=== PATIENT | male | born 1980 | race Caucasian/White ===

== ENCOUNTER 2018-11-30 20:44 | Emergency (ER) | payer SELFPAY ==
--- NOTE | 2018-11-30 22:40 | Emergency Department Report ---
Blank Doc - Documentation Documentation: This is a 38-year-old male here report that he passed out today when he was in the [facility]. He said he is homeless and fell short of breath. He denies any chest pain or shortness of breath at present. Denies any headache or nausea or vomiting. He said he felt like he could not breathe and then he passed out. He said this is happened to him a long time ago. Denies any head injury or headache. Denies any vomiting or dizziness at present. He has a history of high blood pressure. Denies any neck pain or back pain. Pain is 0/10. Patient denies any alcohol use Assessment/plan Vital signs are stable except his blood pressure is 142/103 and he is afebrile. Pulse ox is 100. Many Neurological-alert and oriented 3 and GCS of 15. Neck: No C-spine tenderness Head: Normal exam This initial assessment diagnostic orders/clinical plan/treatment(s) is/are subject to change based on patient's health status, clinical progression and re- assessment by fellow clinical providers in the ED. Further treatment and workup at subsequent clinical providers discretion. Patient/guardians urged not to elope from ED s their condition may be serious if not clinically assessed and managed. Initial orders include: 1-CT scan of the head and brain without contrast, CBC, CMP, troponin, chest x- ray and EKG.
[2018-11-30 23:17] LABS: Basophils % (Auto) 0.8 % (0.0-1.8); Eosinophils # (Auto) 0.2 K/mm3 (0.0-0.4); Eosinophils % (Auto) 2.9 % (0.0-4.3); Hematocrit 43.5 % (35.5-45.6); Hemoglobin 15.4 gm/dl (11.8-15.2); Lymphocytes # (Auto) 1.9 K/mm3 (1.2-5.4); Lymphocytes % (Auto) 31.2 % (13.4-35.0); Mean Corpuscular HGB Conc 36 % (32-34); Mean Corpuscular Volume 94 fl (84-94); Monocytes # (Auto) 0.5 K/mm3 (0.0-0.8); Monocytes % (Auto) 9.1 % (0.0-7.3); Platelet Count 128 K/mm3 (140-440); Red Blood Count 4.62 M/mm3 (3.65-5.03); Red Cell Distribution Width 13.3 % (13.2-15.2)
[2018-11-30 23:39] LABS: Alanine Aminotransferase 85 units/L (7-56); Albumin 4.1 g/dL (3.9-5); BUN/Creatinine Ratio 15; Blood Urea Nitrogen 9 mg/dL (9-20); Calcium 9.2 mg/dL (8.4-10.2); Hemolysis Index 4
[2018-12-01] MEDS ORDERED: NACL 0.9% 1000 ML 1,000 ML IV ONE (01:09)
[2018-12-01] MEDS ORDERED: ZOFRAN IV ONE (01:09)
--- NOTE | 2018-12-01 02:01 | Emergency Department Report ---
ED General Adult HPI - General Chief complaint: Syncope Stated complaint: CHEST PAIN Time Seen by Provider: 11/30/18 22:08 Source: patient Mode of arrival: Ambulatory Limitations: No Limitations - History of Present Illness Initial comments: This is a 38-year-old male here report that he passed out today when he was in the [place]. He said he is homeless and fell short of breath. He denies any chest pain or shortness of breath at present. Denies any headache or nausea or vomiting. He said he felt like he could not breathe and then he passed out. He said this is happened to him a long time ago. Denies any head injury or headache. Denies any vomiting or dizziness at present. He has a history of high blood pressure. Denies any neck pain or back pain. Pain is 0/10. Patient denies any alcohol use MD Complaint: near syncope Onset/Timin -: hour(s) Radiation: non-radiation Severity scale (0 -10): 0 Associated Symptoms: weakness Treatments Prior to Arrival: none - Related Data Previous Rx's Medication Instructions Recorded Last Taken Type ALBUTEROL Inhaler(NF) [VENTOLIN 2 puff IH Q4H PRN #1 inha 12/01/18 Unknown Rx Inhaler(NF)] Azithromycin [Zithromax Z-ARUNA] 250 mg PO DAILY #6 tab 12/01/18 Unknown Rx Benzonatate [Tessalon Perles] 200 mg PO Q8HR PRN #30 capsule 12/01/18 Unknown Rx Ibuprofen 800 mg PO TID PRN #30 tablet 12/01/18 Unknown Rx Allergies Allergy/AdvReac Type Severity Reaction Status Date / Time No Known Allergies Allergy Verified 11/30/18 20:54 ED Review of Systems ROS: Stated complaint: CHEST PAIN Other details as noted in HPI Constitutional: weakness, other (dizziness ). denies: chills, fever Eyes: denies: eye pain, eye discharge, vision change ENT: as per HPI Respiratory: denies: cough, shortness of breath, wheezing Cardiovascular: denies: chest pain, palpitations Endocrine: no symptoms reported Gastrointestinal: denies: abdominal pain, nausea, diarrhea Genitourinary: denies: urgency, dysuria Musculoskeletal: denies: back pain, joint swelling, arthralgia Skin: denies: rash, lesions Neurological: weakness Psychiatric: anxiety Hematological/Lymphatic: denies: easy bleeding, easy bruising ED Past Medical Hx - Past Medical History Previous Medical History?: Yes Hx Hypertension: Yes - Surgical History Past Surgical History?: No - Social History Smoking Status: Never Smoker Substance Use Type: Alcohol - Medications Home Medications: Home Medications Medication Instructions Recorded Confirmed Last Taken Type ALBUTEROL Inhaler(NF) [VENTOLIN 2 puff IH Q4H PRN #1 inha 12/01/18 Unknown Rx Inhaler(NF)] Azithromycin [Zithromax Z-ARUNA] 250 mg PO DAILY #6 tab 12/01/18 Unknown Rx Benzonatate [Tessalon Perles] 200 mg PO Q8HR PRN #30 capsule 12/01/18 Unknown Rx Ibuprofen 800 mg PO TID PRN #30 tablet 12/01/18 Unknown Rx ED Physical Exam - General Limitations: No Limitations General appearance: alert, in no apparent distress - Head Head exam: Present: normocephalic, normal inspection - Expanded Head Exam Expanded Head exam: Absent: laceration, abrasion, contusion, hematoma, racoon eyes, edmonds's sign, general tenderness, tenderness of temporal artery, CSF rhinorrhea, CSF otorrhea - Eye Eye exam: Present: normal appearance, PERRL, EOMI Pupils: Present: normal accommodation - ENT ENT exam: Present: normal orophraynx, mucous membranes moist, TM's normal bilaterally, normal external ear exam - Neck Neck exam: Present: normal inspection, full ROM. Absent: tenderness, meningismus, lymphadenopathy, thyromegaly - Expanded Neck Exam Expanded Neck exam: Absent: tenderness, midline deformity, anterior neck swelling, thyroid mass, carotid bruit, tracheal deviation - Respiratory Respiratory exam: Present: normal lung sounds bilaterally. Absent: respiratory distress, wheezes, stridor, chest wall tenderness - Cardiovascular Cardiovascular Exam: Present: regular rate, normal rhythm, normal heart sounds (antibiotics 10 minute is began year and a his heart is regular location.,.Is is reviewed and is as she). Absent: systolic murmur, diastolic murmur, rubs, gallop - GI/Abdominal GI/Abdominal exam: Present: soft, tenderness (RUQ ), normal bowel sounds. Absent: distended, guarding, rebound, rigid, bruit, hernia - Expanded GI/Abdominal Exam Expanded GI/Abdominal exam: Present: Birch's sign. Absent: psoas sign, obturator sign, heel tap sign, Rovsing's sign, tenderness at Mcburney's Point, ascites - Rectal Rectal exam: Present: deferred - Extremities Exam Extremities exam: Present: normal inspection, full ROM, normal capillary refill. Absent: tenderness, joint swelling, calf tenderness - Back Exam Back exam: Present: normal inspection, full ROM. Absent: tenderness, CVA tenderness (R), CVA tenderness (L), muscle spasm, paraspinal tenderness, vertebral tenderness, rash noted - Neurological Exam Neurological exam: Present: alert, oriented X3, CN II-XII intact, normal gait, reflexes normal - Psychiatric Psychiatric exam: Present: normal affect, normal mood. Absent: homicidal ideation, suicidal ideation - Skin Skin exam: Present: warm, dry, intact, normal color. Absent: rash ED Course Vital Signs 11/30/18 20:54 Temperature 98.7 F Pulse Rate 82 Respiratory 16 Rate Blood Pressure 142/103 [Left] O2 Sat by Pulse 100 Oximetry ED Medical Decision Making - Lab Data Result diagrams: 11/30/18 22:56 11/30/18 22:56 - EKG Data EKG shows normal: sinus rhythm Rate: normal - EKG Data Interpretation: normal EKG (ekg interp by ed attending nsr no ST elevation no no ectopy ) - Radiology Data Radiology results: report reviewed, image reviewed interpreted by me: FINAL REPORT PROCEDURE: CT ABD AND PELVIS WO CONTRAST TECHNIQUE: Computerized axial tomography of the abdomen and pelvis was performed without intravenous contrast. This study is performed without intravascular contrast material and its sensitivity for abdominal and pelvic pathology, including neoplasms, inflammation, abscess, free fluid, thrombosis, arterial dissection and infarction, is reduced compared with a contrast enhanced study. HISTORY: abd pain COMPARISON: No prior studies are available for comparison. FINDINGS: Visualized lower thorax: No significant abnormality. Liver: Normal size and attenuation. Spleen: Normal size and attenuation. Gallbladder and biliary system: Normal. Pancreas: Normal. Adrenals: Normal. Kidneys: Normal. GI tract: No obstruction. The cecum, appendix and colon are normal.. Lymph nodes and mesentery: Normal. Vasculature: Normal. Bladder: Normal. Reproductive organs: Normal. Peritoneum: No free fluid. Musculoskeletal structures: No significant abnormality. Other: None. IMPRESSION: There is no evidence of an acute process in the abdomen or pelvis. The appendix is normal.. Transcribed By: [facility] Dictated By: SHANI VASQUEZ MD Electronically Authenticated By: SHANI VASQUEZ MD Signed Date/Time: 12/01/18258 DD/ 7 TD/TT: 12/01/18257 CT Head normal no acute abnormalities CXR: Mild left lung infiltrate FINAL REPORT PROCEDURE: CT ABD AND PELVIS WO CONTRAST TECHNIQUE: Computerized axial tomography of the abdomen and pelvis was performed without intravenous contrast. This study is performed without intravascular contrast material and its sensitivity for abdominal and pelvic pathology, including neoplasms, inflammation, abscess, free fluid, thrombosis, arterial dissection and infarction, is reduced compared with a contrast enhanced study. HISTORY: abd pain COMPARISON: No prior studies are available for comparison. FINDINGS: Visualized lower thorax: No significant abnormality. Liver: Normal size and attenuation. Spleen: Normal size and attenuation. Gallbladder and biliary system: Normal. Pancreas: Normal. Adrenals: Normal. Kidneys: Normal. GI tract: No obstruction. The cecum, appendix and colon are normal.. Lymph nodes and mesentery: Normal. Vasculature: Normal. Bladder: Normal. Reproductive organs: Normal. Peritoneum: No free fluid. Musculoskeletal structures: No significant abnormality. Other: None. IMPRESSION: There is no evidence of an acute process in the abdomen or pelvis. The appendix is normal.. Transcribed By: [facility] Dictated By: SHANI VASQUEZ MD Electronically Authenticated By: SHANI VASQUEZ MD Signed Date/Time: 12/01/18258 DD/ 7 TD/TT: 12/01/18257 CT Head normal no acute abnormalities CXR: Mild left lung infiltrate - Medical Decision Making CT head no acute abnormalities no bleed no masses CT abdomen no acute findings chest x-ray mild infiltrate left lung patient Rocephin 1 g DC'd to home with Zithromax CMP, CBC demonstrated mild hydration patient given normal saline 1 L IV patient tolerating by mouth hydration and follow-up exam there are no neuro deficits patient is alert & oriented patient is ambulatory with steady gait is no wheezing or shortness of breath no chest pain no back pain no diaphoresis no chest pain EKG is normal sinus rhythm no ectopy no ST elevation interpreted by ED attending this time DC home in stable condition with prescription for his azithromycin albuterol inhaler and ibuprofen patient will continue to hydrate as directed . [facility] and follow up in 2-3 days patient will return to ED should symptoms worsen patient verbalizes agreement and understanding the discharge plan patient DC'd to home in stable condition at this time Critical care attestation.: If time is entered above; I have spent that time in minutes in the direct care of this critically ill patient, excluding procedure time. ED Disposition Clinical Impression: Bronchitis, Mild dehydration CAP (community acquired pneumonia) Qualifiers: Laterality: left Lung location: lower lobe of lung Qualified Code(s): J18.1 - Lobar pneumonia, unspecified organism Disposition: DC-01 TO HOME OR SELFCARE Is pt being admited?: No Does the pt Need Aspirin: No Condition: Stable Instructions: Community-acquired Pneumonia (ED), Upper Respiratory Infection (ED) Prescriptions: ALBUTEROL Inhaler(NF) [VENTOLIN Inhaler(NF)] 2 puff IH Q4H PRN #1 inha PRN Reason: Shortness Of Breath wheezing Azithromycin [Zithromax Z-ARUNA] 250 mg PO DAILY #6 tab Benzonatate [Tessalon Perles] 200 mg PO Q8HR PRN #30 capsule PRN Reason: Cough Ibuprofen 800 mg PO TID PRN #30 tablet PRN Reason: pain fever Referrals: PRIMARY CARE, [Primary Care Provider] - 3-5 Days Forms: Work/School Release Form(ED)
--- NOTE | 2018-12-01 02:59 | Cat Scan Report ---
FINAL REPORT PROCEDURE: CT ABD AND PELVIS WO CONTRAST TECHNIQUE: Computerized axial tomography of the abdomen and pelvis was performed without intravenous contrast. This study is performed without intravascular contrast material and its sensitivity for ab dominal and pelvic pathology, including neoplasms, inflammation, abscess, free fluid, thrombosis, art erial dissection and infarction, is reduced compared with a contrast enhanced study. HISTORY: abd pain COMPARISON: No prior studies are available for comparison. FINDINGS: Visualized lower thorax: No significant abnormality. Liver: Normal size and attenuation. Spleen: Normal size and attenuation. Gallbladder and biliary system: Normal. Pancreas: Normal. Adrenals: Normal. Kidneys: Normal. GI tract: No obstruction. The cecum, appendix and colon are normal.. Lymph nodes and mesentery: Normal. Vasculature: Normal. Bladder: Normal. Reproductive organs: Normal. Peritoneum: No free fluid. Musculoskeletal structures: No significant abnormality. Other: None. IMPRESSION: There is no evidence of an acute process in the abdomen or pelvis. The appendix is normal..
[2018-12-01] MEDS ORDERED: XYLOCAINE 1% MPF 5 mL INFILTRATI ONE (05:09)
[2018-12-01] MEDS ORDERED: ROCEPHIN IM ONE (05:09)
[2018-12-01 05:48] VITALS: BP 111/64
[2018-12-01 05:52] LABS: Bilirubin,Urine NEG (Negative); Blood,Urine NEG (Negative); Color,Urine Amber (Yellow); Hyaline Casts,Urine 3 /LPF; Mucus,Urine 3+ /HPF; Protein,Urine <15 mg/dL mg/dL (Negative)
--- NOTE | 2018-12-02 15:57 | XRay Report ---
FINAL REPORT PROCEDURE: XR CHEST ROUTINE 2V TECHNIQUE: PA and lateral chest radiographs were obtained. CPT 97730 HISTORY: shortness of breath COMPARISON: No prior studies are available for comparison. FINDINGS: Heart: Normal. Mediastinum/Vessels: Normal. Lungs/Pleural space: Mild infiltrate left lower lung. No effusion or pneumothorax. Bony thorax: No acute osseous abnormality. Other: IMPRESSION: Mild left lower lung infiltrate..
--- NOTE | 2018-12-03 08:16 | Cat Scan Report ---
FINAL REPORT PROCEDURE: CT HEAD/BRAIN WO CON TECHNIQUE: Computerized tomography of the head was performed without contrast material. HISTORY: syncope from shortness of breath COMPARISON: No prior studies are available for comparison. FINDINGS: Skull and scalp: Normal. Paranasal sinuses: Normal. Ventricles and subarachnoid spaces: Normal. Cerebrum: No evidence of hemorrhage, acute infarction or mass . Cerebellum and brainstem: No evidence of hemorrhage, acute infarction or mass. Vasculature: Normal. Comments: None. IMPRESSION: Normal Examination
== END 2018-12-01 05:48 | disposition home or self-care (01) ==
LOC: ED 20:44
DX: E86.0 Dehydration (principal); J40 Bronchitis, not specified as acute or chronic; J18.9 Pneumonia, unspecified organism; I10 Essential (primary) hypertension
CPT/HCPCS: 36415; 70450; 71046; 74176; 80053; 81001; 82693; 83690; 84484; 85025; 93005; 93010; 96361; 96372; 96374; 99284; J0696; J2405; J7030